=== PATIENT | female | born 1985 | race Caucasian/White ===

== ENCOUNTER 2018-12-05 09:43 | Outpatient (CLI) | payer OTHER ==
[2018-12-05] MEDS ORDERED: GADOTERATE 10 MMOL/20 ML VIAL ONE (10:18)
== END 2018-12-05 23:59 | disposition home or self-care (01) ==
LOC: CFH 09:43
PROVIDERS: ATTEND Surgery
DX: C50.411 Malignant neoplasm of upper-outer quadrant of right female breast (principal)
CPT/HCPCS: A9575; C8908; C8937

== ENCOUNTER → 2020-06-11 | Outpatient (CLI) | payer BC, OTHER | END | disposition home or self-care (01) | LOC: CFH 14:53 | PROVIDERS: ATTEND Family Medicine | DX: G43.009 Migraine without aura, not intractable, without status migrainosus (principal); J32.9 Chronic sinusitis, unspecified | CPT/HCPCS: 70486; 70551 ==